=== PATIENT | male | born 1975 | race Caucasian/White ===

== ENCOUNTER 2022-04-07 09:06 | Outpatient (CLI) | payer BC ==
[2022-04-07 10:05] LABS: #Eosinphils 0.1 10x3/uL (0.0-0.5); #Monocytes 0.6 10x3/uL (0.0-1.1); #Neutrophils 4.3 10x3/uL (1.5-8.4); %Basophils 0.5 % (0.0-2.0); %Eosinophils 1.5 % (0.0-6.0); %Lymphocytes 24.2 % (18.0-47.0); %Monocytes 8.4 % (0.0-10.0); %Neutrophils 65.1 % (40.0-75.0); Mean Corpuscular HGB CONC 33.3 g/dL (32.0-36.0); Mean Corpuscular Hemoglobin 29.6 pg (27.0-33.0); Mean Corpuscular Volume 88.8 fl (81.2-95.1); Mean Platelet Volume 9.6 fl (7.4-10.4); Platelet Count 194 10x3/uL (150-450); RBC Distribution Width 13.3 % (11.5-14.5); Red Blood Cell (RBC) Count 4.73 10x6/uL (4.32-5.72); White Blood Cell (WBC) Count 6.7 10x3/uL (3.5-10.5)
== END 2022-04-07 09:07 | disposition home or self-care (01) ==
LOC: LABBT 09:06
PROVIDERS: ATTEND Orthopaedic Surgery
DX: Z01.812 Encounter for preprocedural laboratory examination (principal); S46.212A Strain of muscle, fascia and tendon of other parts of biceps, left arm, initial encounter; Z20.822 Contact with and (suspected) exposure to COVID-19
CPT/HCPCS: 85025; 87811

== ENCOUNTER 2022-04-09 07:01 | Day surgery (SDC) | payer BC ==
[2022-04-08 11:26] VITALS: BMI 30.7
[2022-04-09] MEDS ORDERED: Fentanyl 100 MCG/2 ML VIAL ONE (08:02)
[2022-04-09] MEDS ORDERED: Midazolam HCl 2 mg/2 ml Vial ONE ×2 (08:02→10:07)
[2022-04-09] MEDS ORDERED: HYDROcodone/Acetaminophen 5/325 mg Tablet PO PRN ×2 (09:15)
[2022-04-09] MEDS ORDERED: Ropivacaine 0.2% 550 ML 550 ML NERVE BLCK SCH (09:15)
[2022-04-09] MEDS ORDERED: Ondansetron PF 4 MG/2 ML Vial IVP PRN (09:15)
[2022-04-09] MEDS ORDERED: Zolpidem Tartrate 5 MG TAB PO PRN (09:15)
[2022-04-09] MEDS ORDERED: Promethazine HCl 25 MG/ML VIAL IM PRN (09:15)
[2022-04-09] MEDS ORDERED: traMADol HCl 50 MG TAB PO PRN ×2 (09:15)
[2022-04-09] MEDS ORDERED: Sodium Chloride 0.9% 0 ML ONE (10:03)
[2022-04-09] MEDS ORDERED: Clindamycin/D5W 900 mg/50 ml Premix Bag ONE (10:03)
[2022-04-09] MEDS ORDERED: CEFAZOLIN 2 GM VIAL ONE (10:03)
[2022-04-09] MEDS ORDERED: Levofloxacin 500 mg/D5W 100 ml Premix Bag ONE (10:03)
[2022-04-09] MEDS ORDERED: fentaNYL Citrate/PF 100 MCG/2 ML SYRINGE ONE (10:07)
[2022-04-09] MEDS ORDERED: Dexamethasone 20 MG/5 ML VIAL ONE (10:09)
[2022-04-09] MEDS ORDERED: Ketorolac Tromethamine 30 MG/ML VIAL ONE (10:09)
[2022-04-09] MEDS ORDERED: Ondansetron PF 4 MG/2 ML Vial ONE (10:09)
[2022-04-09] MEDS ORDERED: Lidocaine 1% MPF 2 ML VIAL ONE (10:09)
[2022-04-09] MEDS ORDERED: PROPOFOL 200 MG/20 ML VIAL ONE (10:09)
[2022-04-09] MEDS ORDERED: Ketorolac Tromethamine 30 MG/ML VIAL IVP SCH (12:00)
== END 2022-04-09 13:40 | disposition home or self-care (01) ==
LOC: SDC 07:01
PROVIDERS: ATTEND Orthopaedic Surgery
PROC: 0LM40ZZ Reattachment of Left Upper Arm Tendon, Open Approach (ICD-10-PCS; principal; 2022-04-09)
DX: S46.212A Strain of muscle, fascia and tendon of other parts of biceps, left arm, initial encounter (principal); R73.03 Prediabetes; E78.5 Hyperlipidemia, unspecified; K21.9 Gastro-esophageal reflux disease without esophagitis; E66.9 Obesity, unspecified; Z68.30 Body mass index [BMI] 30.0-30.9, adult; Z87.891 Personal history of nicotine dependence; Z88.0 Allergy status to penicillin; X58.XXXA Exposure to other specified factors, initial encounter; Y93.64 Activity, baseball
CPT/HCPCS: 76000; A4306; C1713; J0690; J1100; J1885; J1956; J2250; J2405; J2704; J2795; J3010; J3490